=== PATIENT | male | born 2000 | race Native Hawaiian/Other Pacific Islander ===

== ENCOUNTER 2018-09-08 19:49 | Outpatient (CLI) | payer OTHER | END 2018-09-08 20:15 | disposition short-term general hospital (02) | LOC: AMB 19:49 | DX: S90.00XA Contusion of unspecified ankle, initial encounter (principal); S80.00XA Contusion of unspecified knee, initial encounter; W19.XXXA Unspecified fall, initial encounter; Y93.89 Activity, other specified; Y92.89 Other specified places as the place of occurrence of the external cause | CPT/HCPCS: A0425; A0427 ==